=== PATIENT | female | born 1970 | race Caucasian/White ===

== ENCOUNTER 2016-11-02 08:04 | Day surgery (SDC) | payer OTHER ==
[2016-11-01 10:52] VITALS: BMI 29.7
[~2016-11-02 08:04] MED LIST: LACTATED RINGERS 1,000 ML IV ONE
[2016-11-02 08:42] VITALS: TEMP 97.7
[2016-11-02] MEDS ORDERED: LIDOCAINE 1% 20 ML VIAL (10MG/ML) FOR IV START INTRADERMA ONE (08:45)
[2016-11-02] MEDS ORDERED: fentaNYL (PF) 50 MCG/ML 2 ML AMP ONE (09:27)
[2016-11-02] MEDS ORDERED: MIDAZOLAM 2 MG/2 ML VIAL ONE (09:27)
[2016-11-02] MEDS ORDERED: TRIAMCINOLONE ACETONIDE 40 MG/ML 1 ML VIAL ONE (09:27)
[2016-11-02 10:11] VITALS: BP 141/90; RESP 16
--- NOTE | 2016-11-02 10:21 | FL ---
EXAMINATION TYPE: FL guided pain mgmt statistic DATE OF EXAM: 11/02/2016 10:05 AM HISTORY: Pain rt lumbar radio freq. dr melo aborted after several attempts to reposition needles. 24 sec fl time. 4 pics scanned
[2016-11-02 10:22] VITALS: PULSE 66
[2016-11-02] MEDS ORDERED: KETOROLAC 30 MG/ML 1 ML VIAL IVP ONE (10:26)
[2016-11-02] MEDS ORDERED: IV FLUID CONTINUATION 1,000 ML IV ONE (10:42)
--- NOTE | 2016-11-02 11:08 | P.PCN ---
Date of Procedure: 11/02/16 Anesthesia: MAC Surgeon: Arnold Butcher Pathology: none sent Condition: stable Disposition: PACU Description of Procedure: PREOPERATIVE DIAGNOSIS: Lumbar spondylosis without myelopathy, lumbar facet arthropathy. POSTOPERATIVE DIAGNOSIS: Lumbar spondylosis without myelopathy, lumbar facet arthropathy. PROCEDURES: Right Radiofrequency thermocoagulation, L3, L4, and L5 medial branch , with fluoroscopic guidance, aborted. ANESTHESIA: Local with 1% lidocaine; conscious sedation with Versed/fentanyl EBL: Minimal PROCEDURE INDICATION: The patient with low back pain secondary to lumbar arthropathy who had more than 50% relief of her pain with previous diagnostic lumbar medial branch block with bupivacaine. No use of blood thinners. PROCEDURE DESCRIPTION / TECHNIQUE: The patient was seen and identified in the preoperative holding area. Risks, benefits, complications, and alternatives were discussed with the patient, with risks including but not limited to bleeding, infection, nerve damage, weakness, incomplete pain relief, and allergic reactions to medications. The patient agreed to proceed with the procedure and signed the informed consent after all questions were answered. IV was started. Vital signs remained stable throughout the procedure. Patient was taken to the OR and time out was completed to verify proper patient , position, procedure, laterality of procedure, and allergies. The patient was placed in the prone position on the procedure table. A pillow was placed under the patients abdomen to reduce lordosis. The lumbosacral area was prepped and draped in the usual sterile fashion. Vital signs were closely monitored during the procedure. Conscious sedation was used during the procedure to decrease patients anxiety. Using AP and then oblique fluoroscopy, the eye of the Bakari dog corresponding to the connection between the superior and transverse articular processes of the right L4 vertebra, right L5 vertebra, and right top of the sacrum were identified and marked, and localized with 1% lidocaine. Subsequently, a 18 gauge, 100-mm radiofrequency cannula with a 10-mm active tip was advanced guided by fluoroscopy to each of the eyes of the Bakari dog at right L3, L4, and L5. Each site then underwent sensory testing at 50 Hz and 0 to 1 volt with concordant pain and motor testing at 2 Hz and 0 to 2.5 volts with local stimulation, but no radicular symptoms down the legs. Lateral view fluoroscopy demonstrated that the cannulas were posterior to the intervertebral foramina at all three levels. Upon beginning the initial radiofrequency thermocoagulation at each level, the patient began to feel severe pain in her right lower extremity, all above her right knee, primarily anteriorly but with some posterior discomfort. Lesioning was stopped within five seconds of beginning and the cannulas were re-adjusted posteriorly, motor testing from 0-2.5 volts was again performed and again demonstrated no radicular symptoms down the legs, and lateral fluoroscopy again demonstrated that these cannulas were all posterior to the intervertebral foramina and were thus anatomically unlikely to be close to a nerve root. Lesioning was again attempted, but the patient again complained of feeling weakness and pain in her right thigh, so lesioning was again stopped within five seconds of beginning. At this point, I asked the patient to move her right leg, and the patient noted that she felt her right thigh felt "weak and heavy", and felt differently than it had prior to the beginning of the procedure, so the procedure was immediately aborted and no further RF lesioning took place. Alba were all withdrawn intact, skin was cleansed, and bandages were applied. COMPLICATIONS: I examined the patient myself both immediately after the procedure and in the recovery room. Her strength in the bilateral lower extremities was unchanged from previous preoperative exam (4/5 strength in bilateral lower extremities), and the deficits appeared to essentially be due to pain and were equal on both sides, both before and after the procedure. DISPOSITION: The patient was placed in a supine position and transferred to the recovery area in a stable condition for observation and was discharged from the recovery room after meeting discharge criteria. Home discharge instructions given to the patient by the staff, and all questions were answered by both nursing staff and myself to patient's satisfaction. The patient will schedule a follow up in the clinic in approximately 4 weeks for further evaluation and to discuss her urine drug screen that was positive for cannabis at last visit. If patient continues to feel weakness in RLE at next visit, we will order MRI and nerve conduction studies.
== END 2016-11-02 10:45 | disposition home or self-care (01) ==
LOC: ORPAIN 08:04
PROVIDERS: ATTEND Anesthesiology
DX: G89.29 Other chronic pain (principal); M54.5 Low back pain; M47.816 Spondylosis without myelopathy or radiculopathy, lumbar region; M46.96 Unspecified inflammatory spondylopathy, lumbar region; F90.9 Attention-deficit hyperactivity disorder, unspecified type; Z79.891 Long term (current) use of opiate analgesic; Z79.899 Other long term (current) drug therapy; Z91.09 Other allergy status, other than to drugs and biological substances
CPT/HCPCS: 64635; 64636 ×2; J2250; J3301; J3010; J1885

== ENCOUNTER → 2016-11-30 | Outpatient (CLI) | payer OTHER ==
[2016-11-30 14:43] VITALS: BP 120/81; PULSE 78; RESP 18; TEMP 98.3
--- NOTE | 2016-11-30 21:40 | P.PN ---
Subjective This is follow-up visit for this patient with a history of severe and chronic low back pain secondary to lumbar degenerative disc disease lumbar spondylosis with facet arthropathy, and is currently on pain medications 1-methadone 10 mg every 8 hours 2-Harriman 10/325 every 6 hours when necessary Patient denies any side effects of the medication, denies excessive drowsiness or sleepiness, denies suicidal ideation, A few weeks ago, patient scheduled to have radiofrequency ablation of the medial branch lumbar area ,on the right side, and before the procedure we checked the urine drug screen was positive for marijuana, during the procedure, patient was very emotional and she was complaining of severe pain, and the procedure has to be stopped, then patient is here today to discuss the results of the urine drug screen again, and she will be given prescription refill for 1 month and then she can be discharged from the clinic, Physical Examinations : 1-Constitutiona : Cooperative , not in acute distress . 2-HEENT : nech ; supple , no Lymphadenopathy , no Thyromegaly , normal thyroid size . eyes : no ptosis , no icterus, no photophobia . ENT : normal of hearing , normal oropharynx , no Thrush . 3- Respiratory : Chest clear to auscultations Bilaterally , no wheezing , no Rhonchi . 4- Cardiovascular : regular rate and rhythem , S1 , S2 , no S3 , no S4. 5- Gastrointestinal : abdomen soft no tenderness , bowel sounds positive all four quadrents , no organomegally . 6- Genitourinary : Defferred . 7- neurologic : Cranial nerve II to XII intact , no focal neurological deffecit . 8-psychatric : alert , oriented X 3 , appropriate affect , intact judgment and insight . 9-Lymphatic : no Lymphadenopathy . 10- musculoskeltal : exams of the Lumber spine = motor strength lower extremities ,thigh and legs .5/5 on the right side , and its 3-4/ 5 on the left side deep tendon reflexes : normal Knee Jerk , normal ankle Jerk . lumber facet Loading Test positive strait leg raising test positive at 30 degree , RT ,LT , Fabere test positive RT and positive LT . Range of motion: Range of motion in flexion of the lumbar spine 30 degrees Range of motion range of motion of extension of the lumbar spine 10 Sever tenderness over the Sacroiliac joint on the Right , and Left side Assessment and plan = - Chronic low back pain secondary to lumbar degenerative disc disease , lumbar spondylosis with facet arthropathy without myelopathy , - chronic and current use of high-risk medication (Opioids). Patient had urine drug screen positive for marijuana, for this reason we will discharge patient from our clinic, and she will follow up with her Primary care ,and in the Future, if she wishe to proceed with the radiofrequency, we can schedule her to have radiofrequency ablation of the medial branch on the left side, but I explained to the patient that I cannot give her any narcotics, according to the policy of [facility] pain clinic, patient given prescription for methadone 10 mg every 8 hours, and patient was instructed that this will be the last prescription ,she will get from our clinic Objective - Vital Signs Vital signs: Vital Signs Temp 98.3 F 11/30/16 14:34 Pulse 78 11/30/16 14:34 Resp 18 11/30/16 14:34 BP 120/81 11/30/16 14:34 Pulse Ox Intake & Output 11/30/16 11/30/16 12/01/16 06:59 18:59 06:59 Weight 86.183 kg
== END | disposition home or self-care (01) ==
LOC: PNWHC3 13:54
PROVIDERS: ATTEND Specialist
DX: M51.36 Other intervertebral disc degeneration, lumbar region (principal); M47.816 Spondylosis without myelopathy or radiculopathy, lumbar region; M46.96 Unspecified inflammatory spondylopathy, lumbar region; Z79.891 Long term (current) use of opiate analgesic; F12.90 Cannabis use, unspecified, uncomplicated
CPT/HCPCS: 99211

== ENCOUNTER 2017-01-10 09:32 | Day surgery (SDC) | payer OTHER ==
[~2017-01-10 09:32] MED LIST changes: -LACTATED RINGERS 1,000 ML IV ONE; +LACTATED RINGERS 1,000 ML IV SCH
[2017-01-10] MEDS ORDERED: LIDOCAINE 1% 20 ML VIAL (10MG/ML) FOR IV START INTRADERMA ONE (09:41)
[2017-01-10 09:55] VITALS: RESP 16; TEMP 98.5
[2017-01-10] MEDS ORDERED: BUPIVACAINE (PF) 0.5% 30 ML VIAL ONE (10:31)
[2017-01-10] MEDS ORDERED: MIDAZOLAM 2 MG/2 ML VIAL ONE (10:31)
[2017-01-10] MEDS ORDERED: TRIAMCINOLONE ACETONIDE 40 MG/ML 1 ML VIAL ONE (10:31)
[2017-01-10] MEDS ORDERED: fentaNYL (PF) 50 MCG/ML 2 ML AMP ONE (10:31)
[2017-01-10] MEDS ORDERED: IV FLUID CONTINUATION 1,000 ML IV ONE (11:12)
--- NOTE | 2017-01-10 11:26 | FL ---
FLUOROSCOPY 13 seconds of fluoroscopy time were utilized during Pain Injection. 3 images document the procedure.
--- NOTE | 2017-01-10 11:28 | P.PCN ---
Date of Procedure: 01/10/17 Preoperative Diagnosis: Lumbar spondylosis without myelopathy Postoperative Diagnosis: Same as above Procedure(s) Performed: Left lumbar medial branch radiofrequency ablation under fluoroscopic guidance Anesthesia: MAC Surgeon: Alireza Ayoub Pathology: none sent Condition: stable Disposition: PACU Description of Procedure: The patient was seen in preoperative holding area consent was obtained then she was brought into the procedure room and placed in prone position. Skin was prepped with ChloraPrep and draped in a sterile manner. Lidocaine 1% was used to numb the skin over the target points that were chosen as follows: For the L5- S1 level which corresponds to the dorsal ramus of L5 the target point was at the superior medial aspect of the sacral ala on the left side of the spine on the AP view of fluoroscopy, and for the L2,L3 and L4 medial branches the target points were the connection between the transverse process and the superior articular process of L3, L4, and L5 vertebra. I used AP, oblique, and lateral views of fluoroscopy to verify needle tip position. I tried to place the active tips as parallel as possible to the medial branches tracks by going in a superio - medial direction. Motor stimulation showed only local twitches of these needles with no radiation to the left lower extremity, after that I prepared a solution of 3 mils Marcaine 0.5% +40 mg of Kenalog and 1 mL of the solution was given in each needle then radiofrequency ablation was started for 90 seconds at 80C and after the first session of ablation was done the needles were withdrawn by 1 or 2 mm and the bevels were turned 180 and another session ablation was started for 90 seconds at 80C. Patient tolerated procedure well. The patient tested positive for marijuana on her last office visit and the decision was made to give her only one prescription of methadone for 1 month until she finds another pain clinic however she has not been able to find any pain clinic that'll accept her so far and that's why I'm going to give her prescription for 45 pills of methadone to avoid any withdrawal symptoms since she has only 3 pills left of methadone as she stated. The patient then we will look for a different pain clinic .
[2017-01-10 11:33] VITALS: BP 123/75; PULSE 66
--- NOTE | 2017-01-13 10:11 | CDI ---
Dear Dr. Ayoub, The procedure note documents MAC sedation provided. On the Pain Procedure Record, however, nothing is checked under Anesthesia Plan and it shows that Versed/Fentanyl were given. MAC is with the Anesthesia Department monitoring. This is conflicting documentation that needs clarification. Please clarify is the sedation provided S Matthew was MAC (Monitored Anesthesia Care) or Moderate/Conscious sedation. PLEASE DOCUMENT THIS CLARIFICATION AN ADDENDUM TO THE PROCEDURE NOTE. If you have any questions regarding this query, you can contact Melissa Beckham Med Dir at Tuesday thru Tuesday 8am to 6pm Thank you for your time, Latanya Guzman, [facility] Outpatient [facility] MTDD
== END 2017-01-10 12:01 | disposition home or self-care (01) ==
LOC: ORPAIN 09:32
PROVIDERS: ATTEND Anesthesiology
DX: M47.816 Spondylosis without myelopathy or radiculopathy, lumbar region (principal)
CPT/HCPCS: 64635; 64636 ×3; J2250; J3301; J3010

== ENCOUNTER 2017-03-07 19:42 | Emergency (ER) | payer OTHER ==
[2017-03-07] MEDS ORDERED: HYDROcodone/APAP 10-325MG 1 EACH TAB PO ONE (20:04)
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
--- NOTE | 2017-03-07 20:54 | XR ---
EXAMINATION TYPE: XR lumbar spine 2 or 3V DATE OF EXAM: 03/07/2017 8:30 PM COMPARISON: NONE HISTORY: Pain TECHNIQUE: 3 views FINDINGS: Vertebra have normal alignment. There is mild narrowing at L4-5 disc. Posterior elements ar e intact. There is no compression fracture. Sacroiliac joints are intact. IMPRESSION: Degenerative disc change at L4-5. No fracture.
--- NOTE | 2017-03-07 20:55 | XR ---
EXAMINATION TYPE: XR chest 1V DATE OF EXAM: 03/07/2017 8:30 PM COMPARISON: 08/18/2010 HISTORY: Chest pain TECHNIQUE: Single frontal view of the chest is obtained. FINDINGS: Heart and mediastinum are normal. Lungs are clear. Diaphragm is normal. There is no sign o f pleural effusion. Bony thorax appears intact. IMPRESSION: No active cardiopulmonary disease. No change.
[2017-03-07 21:10] VITALS: BP 134/76; PULSE 87; RESP 18; TEMP 97.8
== END 2017-03-07 21:10 | disposition home or self-care (01) ==
LOC: EC 19:42
DX: M47.816 Spondylosis without myelopathy or radiculopathy, lumbar region (principal); R07.81 Pleurodynia; I10 Essential (primary) hypertension; F90.9 Attention-deficit hyperactivity disorder, unspecified type; F17.200 Nicotine dependence, unspecified, uncomplicated; Z79.899 Other long term (current) drug therapy; Z91.048 Other nonmedicinal substance allergy status; W10.9XXA Fall (on) (from) unspecified stairs and steps, initial encounter; Y93.89 Activity, other specified; Y92.009 Unspecified place in unspecified non-institutional (private) residence as the place of occurrence of the external cause
CPT/HCPCS: 71010; 72100; 99284

== ENCOUNTER → 2017-08-18 | Outpatient (CLI) | payer OTHER ==
[2017-08-18 12:57] VITALS: BP 114/56; PULSE 79; RESP 16
--- NOTE | 2017-08-18 13:44 | P.PN ---
Subjective Progress Note Date: 08/18/17 This is follow-up visit for this patient with a history of severe and chronic low back pain secondary to lumbar degenerative disc disease, lumbar facet arthropathy, we did interventional pain management injection,, the frequency ablation of the median branch lumbar area within the left side in October 2016 and we attempted to do the right side in December 2016 which was not successful because patient had muscle contraction during the procedure, the procedure was aborted patient currently on 1- MS IR 30 mg every 6 hours (her primary care ) Patient denies any side effects of the medication, denies excessive drowsiness or sleepiness, denies suicidal ideation, and reports that the current pain medication is NOT helping To control the pain and improve activity of daily living . Patient denies any motor or sensory deficit, denies change in bowel movement or urination, patient denies any fever or night sweats Objective - Vital Signs Vital signs: Vital Signs Temp Pulse 79 08/18/17 12:47 Resp 16 08/18/17 12:47 BP 114/56 08/18/17 12:47 Pulse Ox 100 08/18/17 12:47 Intake & Output 08/17/17 08/18/17 08/18/17 18:59 06:59 18:59 Weight 84.368 kg - Exam Physical Examinations : 1-Constitutiona : Cooperative , not in acute distress . 2-HEENT : nech ; supple , no Lymphadenopathy , normal thyroid size . eyes : no ptosis , no icterus, no photophobia . ENT : normal of hearing , normal oropharynx , no Thrush . 3- Respiratory : Chest clear to auscultations Bilaterally , no wheezing , no Rhonchi . 4- Cardiovascular : regular rate and rhythem , S1 , S2 , no S3 , no S4. 5- Gastrointestinal : abdomen soft no tenderness , bowel sounds positive all four quadrents , no organomegally . 6- Genitourinary : Defferred . 7- neurologic : Cranial nerve II to XII intact , no focal neurological deffecit . 8-psychatric : alert , oriented X 3 , appropriate affect , intact judgment and insight . 9-Lymphatic : no Lymphadenopathy . 10- musculoskeltal : , Lumber spine = normal moter stegnth lower extremities ,thigh and legs .5/5 deep tendon reflexes : normal Knee Jerk , normal ankle Jerk . positive lumber facet Loading Test strait leg raising test positive at 30 degree , RT ,LT , Fabere test positive RT and positive LT . Sever tenderness over the Sacroiliac joint on the Right , and Left side Assessment and Plan Plan: Assessment and plan= chronic low back pain secondary to lumbar degenerative disc disease , lumbar spondylosis with lumbar facet arthropathy , Interventional pain management= patient could benefit from repeat radiofrequency ablation of the medial branch lumbar area we will start with the left side first and he can do the right side ,
== END | disposition home or self-care (01) ==
LOC: PNWHC3 12:08
PROVIDERS: ATTEND Specialist
DX: M51.36 Other intervertebral disc degeneration, lumbar region (principal); M47.816 Spondylosis without myelopathy or radiculopathy, lumbar region; M46.96 Unspecified inflammatory spondylopathy, lumbar region; Z79.899 Other long term (current) drug therapy
CPT/HCPCS: 99211

== ENCOUNTER 2017-11-08 06:15 | Day surgery (SDC) | payer OTHER ==
[2017-11-01 16:07] VITALS: BMI 28.8
[2017-11-08 07:31] VITALS: TEMP 97.8
[2017-11-08] MEDS ORDERED: LIDOCAINE 1% 20 ML VIAL (10MG/ML) FOR IV START INTRADERMA ONE (07:45)
[2017-11-08] MEDS ORDERED: IV FLUID CONTINUATION 1,000 ML IV ONE (08:24)
[2017-11-08 08:28] VITALS: RESP 16
--- NOTE | 2017-11-08 08:29 | P.PCN ---
Date of Procedure: 11/08/17 Surgeon: Arnold Butcher Pathology: none sent Condition: stable Disposition: PACU Description of Procedure: PREOPERATIVE DIAGNOSIS: Lumbar spondylosis without myelopathy and facet arthropathy POSTOPERATIVE DIAGNOSIS: Lumbar spondylosis without myelopathy and facet arthropathy PROCEDURES: Right Radiofrequency thermocoagulation, L3-L4, L4-L5, and L5-S1 medial branch, with fluoroscopic guidance. ANESTHESIA: 1% lidocaine plain; Conscious sedation with versed/fentanyl EBL: Minimal PROCEDURE INDICATION: The patient with low back pain secondary to lumbar arthropathy who had more than 50% relief of pain with previous diagnostic lumbar medial branch block with bupivacaine and previous good relief with lumbar RFA. Patient presents for right lumbar RFA today after good relief from left side; no use of blood thinners. PROCEDURE DESCRIPTION / TECHNIQUE: The patient was seen and identified in the preoperative area. Risks, benefits, complications, and alternatives were discussed with the patient (including but not limited to incomplete pain relief , bleeding, infection, nerve damage, and allergies to medications), the patient agreed to proceed with the procedure and signed the consent after all questions were answered. Patient was taken to the OR and time out was completed to verify proper patient , position, laterality of pain, and allergies. Pt was placed in the prone position. IV was started. Vital signs remained stable throughout the procedure. A pillow was placed under the patients chest to decrease lordosis. The lumbosacral area was prepped and draped in the usual sterile fashion. Vital signs were closely monitored during the procedure. Conscious sedation was used during the procedure to decrease patients anxiety. Using AP and then oblique fluoroscopy, the eye of the Bakari dog corresponding to the connection between the superior and transverse articular processes of right L3, L4, L5 and top of the sacrum were identified, marked, and localized with 1% lidocaine. Subsequently, a 18 gauge, 100-mm radiofrequency cannula with a 10-mm active tip was advanced guided by fluoroscopy to each of the eyes of the Bakari dog at the levels of all four medial branches. Each site then underwent sensory testing at 50 Hz and 0 to 1 volt and motor testing at 2 Hz and 0 to 3 volt with local stimulation, but no radicular symptoms down the legs. Thereafter all four medial branch sites underwent radiofrequency thermocoagulation at 80 degrees Celsius for 90 seconds after injecting 0.5 ml of PF lidocaine 1%. After thermocoagulation, 1 ml of the block solution containing Kenalog 40 mg and 2 mL of preservative-free normal saline was injected at all four medial branch levels after negative aspiration of CSF and blood and with no paresthesias. Cannulas were retracted while injecting lidocaine 1% until the needles were removed. At the end of the procedure, the skin was cleansed and bandages were applied. COMPLICATIONS: No acute complications. DISPOSITION / PLANS: The patient was placed in a supine position and transferred to the recovery area in a stable condition for observation and was discharged from the recovery room after meeting discharge criteria. Home discharge instructions given to the patient by the staff. The patient was reexamined prior to discharge. The patient will schedule a follow up in clinic in 2-4 weeks.
--- NOTE | 2017-11-08 08:30 | FL ---
EXAMINATION TYPE: FL guided pain mgmt statistic DATE OF EXAM: 11/08/2017 HISTORY: Pain 7 sec fl time used during rt side rt lumbar
[2017-11-08 08:53] VITALS: BP 103/70; PULSE 58
== END 2017-11-08 09:07 | disposition home or self-care (01) ==
LOC: ORPAIN 06:15
PROVIDERS: ATTEND Anesthesiology
DX: G89.29 Other chronic pain (principal); M47.816 Spondylosis without myelopathy or radiculopathy, lumbar region; I10 Essential (primary) hypertension; F32.9 Major depressive disorder, single episode, unspecified; Z79.891 Long term (current) use of opiate analgesic; Z79.899 Other long term (current) drug therapy; Z91.09 Other allergy status, other than to drugs and biological substances
CPT/HCPCS: 64635; 64636 ×2; J2250; J3301; J2001; J3010; 99152

== ENCOUNTER → 2017-12-01 | Outpatient (CLI) | payer OTHER ==
[2017-12-01 13:28] VITALS: BP 120/86; PULSE 72; RESP 18
--- NOTE | 2017-12-01 15:09 | P.PN ---
Progress Note - Text Progress Note Date: 12/01/17 This is 47 years old female with a chronic history of severe low back pain she was diagnosed with lumbar spondylosis, with done radiofrequency ablation of the medial branch lumbar area, patient doing very well, and she reported ,that her pain improved significantly ,after, we did the radiofrequency, she is able to do activities of daily livings without being miserable, she is currently on MS IR 30 mg every 6 hours she is getting prescription from her primary care, she denies any side effects of the medication and she reports the current pain medication helping her to control her pain, patient will follow up with her primary care ,regarding management of her pain medication ,and she will follow up with the pain clinic when necessary
== END | disposition home or self-care (01) ==
LOC: PNWHC3 12:29
PROVIDERS: ATTEND Specialist
DX: G89.29 Other chronic pain (principal); M54.5 Low back pain; M47.816 Spondylosis without myelopathy or radiculopathy, lumbar region; Z79.891 Long term (current) use of opiate analgesic
CPT/HCPCS: 99211

== ENCOUNTER 2017-12-15 11:05 | Emergency (ER) | payer OTHER ==
[2017-12-15 11:09] VITALS: RESP 18
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
[2017-12-15] MEDS ORDERED: SODIUM CHLORIDE 0.9% 1,000 ML IV STA (11:23)
[2017-12-15 11:52] LABS: Basophils % (A) 0 %; Eosinophils # (A) 0.1 k/uL (0-0.7); Eosinophils % (A) 2 %; HCT 38.8 % (34.0-46.0); HGB 12.9 gm/dL (11.4-16.0); Lymphocytes # (A) 1.5 k/uL (1.0-4.8); Lymphocytes % (A) 21 %; MCH 30.2 pg (25.0-35.0); MCHC 33.2 g/dL (31.0-37.0); Mean Platelet Volume 7.5; Monocytes # (A) 0.4 k/uL (0-1.0); Monocytes % (A) 5 %; Neutrophils # (A) 4.9 k/uL (1.3-7.7); Neutrophils % (A) 70 %; Platelet Count 305 k/uL (150-450); RBC 4.26 m/uL (3.80-5.40); RDW 13.7 % (11.5-15.5)
[2017-12-15 11:58] LABS: Appearance,Urine Clear (Clear); Bilirubin,Urine Negative (Negative); Blood,Urine Large (Negative); Color,Urine Yellow; Glucose,Urine (UA) Negative (Negative); Ketones,Urine Negative (Negative); Leukocyte Esterase,Urine Negative (Negative); PH, Urine 7.5 (5.0-8.0); Protein,Urine Trace (Negative); RBC,Urine >182 /hpf (0-5); Specific Gravity,Urine 1.007 (1.001-1.035); Squamous Epithelial Cell,Urine 1 /hpf (0-4); Urobilinogen,Urine <2.0 mg/dL (<2.0)
[2017-12-15 12:04] LABS: ALT 27 U/L (9-52); AST 17 U/L (14-36); Albumin 3.8 g/dL (3.5-5.0); Alkaline Phosphatase 57 U/L (38-126); Anion Gap 5 mmol/L; Blood Urea Nitrogen 12 mg/dL (7-17); Calcium 9.2 mg/dL (8.4-10.2); Carbon Dioxide 27 mmol/L (22-30); Chloride 108 mmol/L (98-107); Glucose 87 mg/dL (74-99); Sodium 140 mmol/L (137-145); Total Bilirubin 0.4 mg/dL (0.2-1.3); Total Protein 6.3 g/dL (6.3-8.2)
[2017-12-15 12:19] LABS: HCG,Quantitative Serum <2.4 mIU/mL
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
[2017-12-15 13:15] VITALS: BP 135/78; PULSE 87; TEMP 98.7
== END 2017-12-15 13:15 | disposition home or self-care (01) ==
LOC: EC 11:05
DX: R93.8 Abnormal findings on diagnostic imaging of other specified body structures (principal); N93.9 Abnormal uterine and vaginal bleeding, unspecified; R10.2 Pelvic and perineal pain; I10 Essential (primary) hypertension; F90.9 Attention-deficit hyperactivity disorder, unspecified type; F17.200 Nicotine dependence, unspecified, uncomplicated; Z79.899 Other long term (current) drug therapy; Z91.048 Other nonmedicinal substance allergy status
CPT/HCPCS: 36415; 76830; 76856; 80053; 81001; 84702; 85025; 93975; 96360; 99284

== ENCOUNTER 2018-03-15 20:47 | Emergency (ER) | payer OTHER ==
[2018-03-15 21:06] VITALS: BP 185/110; PULSE 58; RESP 20; TEMP 98.1
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
--- NOTE | 2018-03-15 21:49 | XR ---
EXAMINATION TYPE: XR ankle complete LT DATE OF EXAM: 03/15/2018 COMPARISON: NONE HISTORY: Fall downstairs, pain TECHNIQUE: Three-view left ankle FINDINGS: Ankle mortise is intact. No acute fractures or dislocations are evident. Soft tissues are n ormal. Plantar calcaneal heel spur is present. Follow-up exam can be performed 7-10 days from acute trauma for continued pain. Some small ossifications are adjacent to the navicular most likely related to secondary ossification centers. There is pain at this level, consider 3 view foot for additional evaluation. IMPRESSION: 1. No acute fractures within the ankle. 2. Plantar calcaneal heel spur. 3. Suspected secondary ossification centers adjacent to the medial navicular. There is pain at this l ocation, consider plain film of the left foot.
--- NOTE | 2018-03-15 22:18 | XR ---
EXAMINATION TYPE: XR foot complete LT DATE OF EXAM: 03/15/2018 COMPARISON: NONE HISTORY: Ankle pain foot pain TECHNIQUE: 3 views FINDINGS: Metatarsals appear intact. I see no fracture nor dislocation. There is a plantar calcaneal spur. There is mild spurring at the talonavicular joint. IMPRESSION: Degenerative changes. No fracture.
== END 2018-03-15 22:35 | disposition home or self-care (01) ==
LOC: EC 20:47
DX: S93.402A Sprain of unspecified ligament of left ankle, initial encounter (principal); S96.912A Strain of unspecified muscle and tendon at ankle and foot level, left foot, initial encounter; I10 Essential (primary) hypertension; F90.9 Attention-deficit hyperactivity disorder, unspecified type; F17.200 Nicotine dependence, unspecified, uncomplicated; Z88.8 Allergy status to other drugs, medicaments and biological substances; Z79.899 Other long term (current) drug therapy; X50.1XXA Overexertion from prolonged static or awkward postures, initial encounter
CPT/HCPCS: 99283

== ENCOUNTER → 2018-08-01 | Day surgery (SDC) | payer OTHER ==
[2018-07-26 11:43] VITALS: BMI 28.5
[~2018-08-01] MED LIST changes: -LACTATED RINGERS 1,000 ML IV SCH; +SODIUM CHLORIDE 0.9% 1,000 ML IV ONE; +SODIUM CHLORIDE 0.9% 500 ML 500 ML IV SCH
[2018-08-01 09:04] VITALS: TEMP 98.1
--- NOTE | 2018-08-01 10:04 | P.PCN ---
Date of Procedure: 08/01/18 Procedure(s) Performed: PREOPERATIVE DIAGNOSIS: 1-Lumbar Spondylosis with Facet Arthropathy without myelopathy. POSTOPERATIVE DIAGNOSIS: 1- Lumbar Spondylosis with Facet Arthropathy without myelopathy. PROCEDURES : Left Radiofrequency thermocoagulation, L3-L4, L4-L5, and L5-S1 medial branch, with fluoroscopic guidance ANESTHESIA: Moderate sedation with intravenous versed 2 mg and fentaneyl 100 mcg, and local infiltration with Ropivacaine 0.5 % . EBL: Minimal PROCEDURE INDICATION: The patient with low back pain secondary to lumbar facet arthropathy who had more than 50% relief of her pain with previous diagnostic lumbar medial branch block with bupivacaine. PROCEDURE DESCRIPTION / TECHNIQUE: The patient was seen and identified in the preoperative area. Risks, benefits, complications, including but not limited to risk of infection ,bleeding , allergic reactions to the medications and no complete pain releife , and alternatives were discussed with the patient, the patient agreed to proceed with the procedure and signed the consent. IV was started. Vital signs remained stable throughout the procedure. Patient was taken to the OR and time out was completed. The patient was placed in the prone position on the procedure table. The lumber area was prepped and draped in the usual sterile fashion. . Vital signs were closely monitored during the procedure .IV sedation was used during the procedure to decrease patients anxiety. Using AP and then oblique fluoroscopy, the ``eye of the Bakari dog corresponding to the connection between the superior and transverse articular processes of Left L3, L4, and L5 were identified, marked, and localized with 1 % lidocaine. Subsequently, a 18 [id number] radiofrequency cannula with a 10- mm active tip was advanced guided by fluoroscopy to each of the ``eyes of the Bakari dog at Left L3, L4, and L5. Each site then underwent sensory testing at 50 Hz and 0 to 1 volt and motor testing at 2.5 Hz and 0 to 3 volt with local stimulation, but no radicular symptoms down the legs. Thereafter the Left L3-4, L4-5, and L5-S1 sites underwent radiofrequency thermocoagulation at 80 degrees celsius for 90 seconds after injecting 0.5 ml of PF Ropivacaine 1ml then After the thermocoagulation done , 1 ml of the block solution containing Kenalog 40 mg and 3 ml of Ropivacaine 0.5% was injected at the Left L3-4 , L4 -5 , and L5-S1, levels after negative aspiration of CSF and blood and with no paresthesias. Cannulas were retracted while injecting lidocaine 1% until the needle is out. At the end of the procedure, the skin was cleansed and bandages were applied. COMPLICATIONS: No acute complications. DISPOSITION / PLANS: The patient was placed in a supine position and transferred to the recovery area in a stable condition for observation and was discharged from the recovery room after meeting discharge criteria. Home discharge instructions given to the patient by the staff. The patient was reexamined prior to discharge. The patient will schedule a follow up in the clinic in 2-4 weeks.
--- NOTE | 2018-08-01 10:40 | FL ---
EXAMINATION TYPE: FL guided pain mgmt statistic DATE OF EXAM: 08/01/2018 COMPARISON: NONE HISTORY: Back pain TECHNIQUE: Fluoroscopy. FINDINGS/IMPRESSION: Fluoroscopic guidance was provided during procedure performed by Dr. Donald. A total of 24 seconds of fluoroscopic time was utilized during the procedure and 3 spot images was a cquired demonstrating multilevel localization of the lumbar spine.
[2018-08-01 10:51] VITALS: RESP 16
[2018-08-01 10:56] VITALS: BP 110/73; PULSE 55
== END ==
LOC: ORPAIN 08:32
PROVIDERS: ATTEND Specialist
DX: M47.816 Spondylosis without myelopathy or radiculopathy, lumbar region (principal); Z91.09 Other allergy status, other than to drugs and biological substances
CPT/HCPCS: 64635; 64636; J2250; J3010; 99152

== ENCOUNTER → 2018-09-12 | Day surgery (SDC) | payer OTHER ==
[2018-09-04 10:45] VITALS: BMI 28.5
[~2018-09-12] MED LIST changes: -SODIUM CHLORIDE 0.9% 1,000 ML IV ONE; +SODIUM CHLORIDE 0.9% 250 ML IV ONE; -SODIUM CHLORIDE 0.9% 500 ML 500 ML IV SCH
[2018-09-12 09:58] VITALS: RESP 18; TEMP 98.1
--- NOTE | 2018-09-12 10:53 | P.PCN ---
Date of Procedure: 09/12/18 Procedure(s) Performed: PREOPERATIVE DIAGNOSIS: 1-Lumbar Spondylosis with Facet Arthropathy without myelopathy. POSTOPERATIVE DIAGNOSIS: 1- Lumbar Spondylosis with Facet Arthropathy without myelopathy. PROCEDURES : Right Radiofrequency thermocoagulation, L3-L4, L4-L5, and L5-S1 medial branch, with fluoroscopic guidance ANESTHESIA: Moderate sedation with intravenous versed 2 mg and fentaneyl 100 mcg, and local infiltration with Ropivacaine 0.5 % . EBL: Minimal PROCEDURE INDICATION: The patient with low back pain secondary to lumbar facet arthropathy who had more than 50% relief of her pain with previous diagnostic lumbar medial branch block with bupivacaine. PROCEDURE DESCRIPTION / TECHNIQUE: The patient was seen and identified in the preoperative area. Risks, benefits, complications, including but not limited to risk of infection ,bleeding , allergic reactions to the medications and no complete pain releife , and alternatives were discussed with the patient, the patient agreed to proceed with the procedure and signed the consent. IV was started. Vital signs remained stable throughout the procedure. Patient was taken to the OR and time out was completed. The patient was placed in the prone position on the procedure table. The lumber area was prepped and draped in the usual sterile fashion. . Vital signs were closely monitored during the procedure .IV sedation was used during the procedure to decrease patients anxiety. Using AP and then oblique fluoroscopy, the ``eye of the Bakari dog corresponding to the connection between the superior and transverse articular processes of right L3, L4, and L5 were identified, marked, and localized with 1% lidocaine. Subsequently, a 18 [id number] radiofrequency cannula with a 10- mm active tip was advanced guided by fluoroscopy to each of the ``eyes of the Bakari dog ' at right L3, L4, and L5. Each site then underwent sensory testing at 50 Hz and 0 to 1 volt and motor testing at 2.5 Hz and 0 to 3 volt with local stimulation, but no radicular symptoms down the legs. Thereafter the right L3-4, L4-5, and L5-S1 sites underwent radiofrequency thermocoagulation at 80 degrees celsius for 90 seconds after injecting 0.5 ml of PF Ropivacaine 1ml then After the thermocoagulation done , 1 ml of the block solution containing Depo-medrol 40 mg and 3 ml of Ropivacaine 0.5% was injected at the right L3-4 , L4-5 , and L5-S1, levels after negative aspiration of CSF and blood and with no paresthesias. Cannulas were retracted while injecting lidocaine 1% until the needle is out. . At the end of the procedure, the skin was cleansed and bandages were applied. COMPLICATIONS: No acute complications. DISPOSITION / PLANS: The patient was placed in a supine position and transferred to the recovery area in a stable condition for observation and was discharged from the recovery room after meeting discharge criteria. Home discharge instructions given to the patient by the staff. The patient was reexamined prior to discharge. The patient will schedule a follow up in the clinic in 2-4 weeks.
--- NOTE | 2018-09-12 11:01 | FL ---
Fluoroscopy INDICATION: Pain FINDINGS: Fluoroscopy time: 31 seconds. Images obtained: 3. IMPRESSIONS: 1. Documentation of fluoroscopy.
[2018-09-12 11:18] VITALS: PULSE 56
[2018-09-12 12:14] VITALS: BP 144/84
== END | disposition home or self-care (01) ==
LOC: ORPAIN 09:17
PROVIDERS: ATTEND Specialist
DX: M47.816 Spondylosis without myelopathy or radiculopathy, lumbar region (principal); M46.96 Unspecified inflammatory spondylopathy, lumbar region; Z91.048 Other nonmedicinal substance allergy status
CPT/HCPCS: 64635; 64636 ×2; J2250; J1030; J3010; 99152

== ENCOUNTER → 2018-10-19 | Outpatient (CLI) | payer OTHER ==
[2018-10-19 14:00] VITALS: BP 132/92; PULSE 69; RESP 18
--- NOTE | 2018-10-19 14:22 | P.PN ---
Subjective Progress Note Date: 10/19/18 This is follow-up visit for this patient with a history of severe and chronic low back pain secondary to lumbar degenerative disc disease, lumbar facet arthropathy, we did interventional pain management injection,, the frequency ablation of the median branch lumbar area , done a few weeks ago, patient reported that her low back pain improved significantly after the radiofrequency , but she reported that she is having severe pain in the lower extremity mainly on the left side, the pain associated with numbness and tingling sensation , and she feels her lower extremity weaker than before , she continued to use pain medication MS IR 30 mg every 6 hours (she is getting prescription refill from her primary care ) Patient denies any side effects of the medication, denies excessive drowsiness or sleepiness, denies suicidal ideation, and reports that the current pain medication is NOT helping To control the pain and improve activity of daily living . Patient denies any motor or sensory deficit, denies change in bowel movement or urination, patient denies any fever or night sweats Physical Examinations : 1-Constitutiona : Cooperative , not in acute distress . 2-HEENT : nech ; supple , no Lymphadenopathy , normal thyroid size . eyes : no ptosis , no icterus, no photophobia . ENT : normal of hearing , normal oropharynx , no Thrush . 3- Respiratory : Chest clear to auscultations Bilaterally , no wheezing , no Rhonchi . 4- Cardiovascular : regular rate and rhythem , S1 , S2 , no S3 , no S4. 5- Gastrointestinal : abdomen soft no tenderness , bowel sounds positive all four quadrents , no organomegally . 6- Genitourinary : Defferred . 7- neurologic : Cranial nerve II to XII intact , no focal neurological deffecit . 8-psychatric : alert , oriented X 3 , appropriate affect , intact judgment and insight . 9-Lymphatic : no Lymphadenopathy . 10- musculoskeltal : , Lumber spine = normal moter stegnth lower extremities ,thigh and legs .5/5 deep tendon reflexes : normal Knee Jerk , normal ankle Jerk . positive lumber facet Loading Test strait leg raising test positive at 30 degree , RT ,LT , Fabere test positive RT and positive LT . tenderness over the Sacroiliac joint on the Right , and Left side Assessment and plan= chronic low back pain secondary to lumbar degenerative disc disease , lumbar spondylosis with lumbar facet arthropathy , status post radiofrequency ablation of medial branch lumbar area , patient currently complaining of severe pain and numbness in the lower extremity, I will order MRI of the lumbar spine to identify the etiology Patient will be given prescription for Valium 5 mg to be taken before the MRI , he shouldn't be a candidate to have lumbar epidural steroid injection Objective - Vital Signs Vital signs: Vital Signs Temp Pulse 69 10/19/18 13:46 Resp 18 10/19/18 13:46 BP 132/92 10/19/18 13:46 Pulse Ox 99 10/19/18 13:46 Intake & Output 10/18/18 10/19/18 10/19/18 18:59 06:59 18:59 Weight 83.007 kg
== END | disposition home or self-care (01) ==
LOC: PNWHC3 13:28
PROVIDERS: ATTEND Specialist
DX: G89.29 Other chronic pain (principal); M51.36 Other intervertebral disc degeneration, lumbar region; M47.816 Spondylosis without myelopathy or radiculopathy, lumbar region; M46.96 Unspecified inflammatory spondylopathy, lumbar region; M79.662 Pain in left lower leg; R20.0 Anesthesia of skin; Z98.890 Other specified postprocedural states
CPT/HCPCS: 99211

== ENCOUNTER → 2018-10-25 | Outpatient (CLI) | payer OTHER ==
--- NOTE | 2018-10-26 03:29 | MR ---
EXAMINATION TYPE: MR lumbar spine wo con DATE OF EXAM: 10/25/2018 COMPARISON: 11/13/2014 HISTORY: low back pain into legs, numbness TECHNIQUE: Multiplanar, multisequence images of the lumbar spine were acquired. The vertebra have normal alignment. There is narrowing of L4-5 disc space. There is no spinal stenosi s. Lumbar nerve roots appear normal. Neural foramina are fairly well-maintained. Disc space narrowing at L4-5 could be developmental. I see no focal bone destruction. There is no lumbar paraspinal mass. IMPRESSION: Hypoplastic L4-5 lumbar disc. No spinal stenosis. No lumbar disc herniation..
== END | disposition home or self-care (01) ==
LOC: RADMRIMAIN 21:52
PROVIDERS: ATTEND Specialist
DX: M51.86 Other intervertebral disc disorders, lumbar region (principal)
CPT/HCPCS: 72148

== ENCOUNTER → 2018-11-13 | Outpatient (CLI) | payer OTHER ==
[2018-11-13 12:41] VITALS: BP 112/80; PULSE 88; RESP 16; TEMP 97.8
--- NOTE | 2018-11-14 06:04 | P.PN ---
Subjective Progress Note Date: 11/13/18 This is follow-up visit for this patient with a history of severe and chronic low back pain secondary to lumbar degenerative disc disease, lumbar facet arthropathy, we did interventional pain management injection,, the frequency ablation of the median branch lumbar area , done a few weeks ago, patient reported that her low back pain improved significantly after the radiofrequency , but she reported that she is having severe pain in the lower extremity mainly on the left side, the pain associated with numbness and tingling sensation , and she feels her lower extremity weaker than before , she continued to use pain medication MS IR 30 mg every 6 hours (she is getting prescription refill from her primary care ) Patient denies any side effects of the medication, denies excessive drowsiness or sleepiness, denies suicidal ideation, and reports that the current pain medication is NOT helping To control the pain and improve activity of daily living . Patient denies any motor or sensory deficit, denies change in bowel movement or urination, patient denies any fever or night sweats Plan patient came for follow-up visit to discuss the results of the MRI report that was done recently, the MRI report showed that she had hypoplastic of L4-5 Disc , patient could benefit from Neurontin 100 mg 3 times a day, and she will follow up with the neurosurgeon for evaluation, regarding her MRI results. Objective - Vital Signs Vital signs: Vital Signs Temp 97.8 F 11/13/18 12:36 Pulse 88 11/13/18 12:36 Resp 16 11/13/18 12:36 BP 112/80 11/13/18 12:36 Pulse Ox 96 11/13/18 12:36 Intake & Output 11/13/18 11/13/18 11/14/18 06:59 18:59 06:59 Weight 82.554 kg
== END ==
LOC: PNWHC3 11:49
PROVIDERS: ATTEND Specialist
DX: G89.29 Other chronic pain (principal); M51.36 Other intervertebral disc degeneration, lumbar region; M46.96 Unspecified inflammatory spondylopathy, lumbar region; Z79.899 Other long term (current) drug therapy
CPT/HCPCS: 99211

== ENCOUNTER 2019-06-21 23:01 | Emergency (ER) | payer OTHER ==
[2019-06-21 23:11] VITALS: RESP 18
--- NOTE | 2019-06-22 00:19 | CT ---
INDICATION: Pain TECHNIQUE: CT acquisition is performed through the brain and cervical spine. Sagittal and coronal reformatted images are provided. No IV contrast is administered. DOSE INFORMATION: DLP 1431.4 mGy-cm. This CT exam was performed using one or more of the following dose reduction techniques: automated exposure control, adjustment of the mA and/or kV according to patient size, and/or use of iterative reconstruction technique. COMPARISON: None. FINDINGS: CT head: No intracranial hemorrhage, abnormal intra- or extra-axial collections or parenchymal lesions are seen. The shape and configuration of the cortical sulci, basal cisterns and ventricles are within normal limits. The urbina-white differentiation is preserved. No evidence of mass effect, midline shift, or edema. The calvarium is intact. The visualized sinuses and mastoid air cells are clear. CT cervical spine: Craniocervical and atlantoaxial relationships are maintained. Vertebral body height and alignment are preserved. There is no evidence of acute fracture or subluxation. There is mild degenerative disc disease at C6-C7. There is mild right greater than left facet arthropathy. Degenerative changes are present at the anterior C1-C2 articulation. There is no high-grade spinal canal stenosis. There is no prevertebral soft tissue swelling. Lung apices are clear. IMPRESSION: 1. CT head: No acute intracranial process. 2. CT cervical spine: No acute osseous findings.
--- NOTE | 2019-06-22 01:09 | XR ---
INDICATION: Pain COMPARISON: Lumbar spine radiographs 03/07/17 FINDINGS: Frontal, lateral, and spot L5-S1 views of the lumbar spine are provided. There is no evidence of acute fracture or subluxation. There is normal lumbar lordosis, vertebral body height, and alignment. There is multilevel facet arthropathy and moderate space narrowing at L4-L5, similar to prior exam. Sacroiliac joints are normally aligned. IMPRESSION: No acute fracture or subluxation.
--- NOTE | 2019-06-22 01:10 | XR ---
INDICATION: Pain COMPARISON: CXR 03/07/17 FINDINGS: PA and lateral views of the chest are obtained. Cardiac mediastinal fluid and pulmonary vascularity are normal. The lungs are clear. There is no pleural effusion or pneumothorax. Bony elements are within normal limits. IMPRESSION: No acute cardiopulmonary disease.
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
[2019-06-22 01:41] VITALS: BP 107/65; PULSE 67; TEMP 97.8
== END 2019-06-22 01:36 | disposition home or self-care (01) ==
LOC: EC 23:01
DX: S09.90XA Unspecified injury of head, initial encounter (principal); M54.2 Cervicalgia; G89.29 Other chronic pain; M54.5 Low back pain; I10 Essential (primary) hypertension; F17.200 Nicotine dependence, unspecified, uncomplicated; Z79.891 Long term (current) use of opiate analgesic; Z79.899 Other long term (current) drug therapy; Z91.048 Other nonmedicinal substance allergy status; Z86.69 Personal history of other diseases of the nervous system and sense organs; Z90.11 Acquired absence of right breast and nipple; V49.40XA Driver injured in collision with unspecified motor vehicles in traffic accident, initial encounter; Y93.89 Activity, other specified; Y92.89 Other specified places as the place of occurrence of the external cause
CPT/HCPCS: 70450; 71046; 72100; 72125; 99285

== ENCOUNTER → 2019-11-13 | Outpatient (CLI) | payer OTHER ==
[2019-11-13 12:55] VITALS: PULSE 96; RESP 16
[2019-11-13 13:36] VITALS: BP 144/104
--- NOTE | 2019-11-14 12:00 | P.PAINPG ---
Subjective Progress Note Date: 11/13/19 This is follow-up visit for this 49-year-old female patient with a history of severe and chronic low back pain secondary to lumbar degenerative disc disease, lumbar facet arthropathy, we performed interventional pain procedures- radiofrequency ablation of the lumbar area , done over a year ago, patient reported that her low back pain improved significantly after the radiofrequency , lasting for approximately 6 months. Her current pain is located in the low back, left worse than right, radiating to bilateral lower extremities, worse on the left side. This she does report leg numbness when sitting for more than 10 minutes. 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 She continues to use pain medication morphine extended release 60 mg twice a day and oxycodone 10/325 twice a day when necessary, she obtains this from Dr. Martinez. Of note, she has been evaluated by neurosurgeon, Dr. Byrd, who recommended a spinal cord stimulator per the patient, however she has been unable to obtain a referral for psychiatry for clearance for spinal cord stimulator, she is requesting a prescription for this today. Per the patient, she has been evaluated by several neurosurgeons, who informed her that she is not a candidate for surgery, she has a tendency to develop invasive keloids with surgical incision. Patient denies any side effects of the medication, denies excessive drowsiness or sleepiness, denies suicidal ideation, and reports that the current pain medication is helping to control the pain and improve activity of daily living. Patient denies any motor or sensory deficit, denies change in bowel movement or urination, patient denies any fever or night sweats Review of systems is negative for chest pain, shortness of breath, new onset weakness, numbness/tingling, abdominal pain, malaise, fever, night sweats, chills, homicidal or suicidal ideation, or bowel or bladder incontinence. She does endorse hot flashes. Physical exam: Vitals: Reviewed in EMR GENERAL: Well appearing, in no acute distress PSYCH: Mood and affect is appropriate. Awake, alert, and oriented SKIN: Skin color, texture, turgor normal, no rashes or lesions HEENT: Normocephalic, atraumatic. EOM intact CV: No pedal edema RESP: Respirations are unlabored, no audible wheezing GI: Abdomen non-distended MUSCULOSKELETAL: Bilateral lower extremity strength is normal and symmetric. No atrophy or tone abnormalities are noted. Lumbar spine: Straight leg raising in the sitting position is negative for radicular pain. Tenderness to palpation over the lumbar spine and paraspinous muscles, worse on the left side. Positive for pain with facet loading and back extension/rotation. Range of motion is limited due to pain Buttocks: No pain to palpation over the PSIS Extremities: Peripheral joint ROM is full and pain free without obvious instability or laxity in all four extremities. No edema or skin discolorations noted. Gait: Gait is slow NEUR: Bilateral lower extremity coordination and muscle stretch reflexes are physiologic and symmetric. Negative clonus bilaterally. No loss of sensation is noted. Assessment and plan= 1. chronic low back pain secondary to lumbar degenerative disc disease , lumbar spondylosis with lumbar facet arthropathy , status post radiofrequency ablation of medial branch lumbar area done over one year ago with 6 months of good benefit, patient would benefit from repeat procedure, we will schedule her to have radiofrequency ablation of the lumbar area- L3, L4, L5 medial branches for facets L4-5 and L5- S1, we will start with the left side 2. Chronic use of high-risk medications including opioids- patient is obtaining these from Dr. Martinez. Patient has been evaluated by neurosurgeon, Dr. Byrd and recommended to have a spinal cord stimulator. She is requesting a psychiatry referral today for clearance for SCS implantation. I provided her with this today. I also informed her to have a discussion with both Dr. Martinez and Dr. Byrd as to who would manage her spinal cord stimulator, if she is a candidate for implantation. I informed her that the purpose of the stimulator is to wean off narcotics completely, she is amenable to this plan. I counseled the patient for 3 minutes on the importance of smoking cessation as it relates to overall health and chronic pain. She is working on cutting down, she is currently smoking 5-7 cigarettes per day. Follow-up: For above-mentioned procedure Objective - Vital Signs Vital signs: Vital Signs Temp Pulse 96 11/13/19 12:47 Resp 16 11/13/19 12:47 BP Pulse Ox 99 11/13/19 12:47 Intake & Output 11/12/19 11/13/19 11/13/19 18:59 06:59 18:59 Weight 93.894 kg PQRS Measure Charge Sheet Measure #130: Documentation of Current Meds in Medical Chart: Patient's medications documented in chart Measure #226: Tobacco Use: Screen & Cessation Intervention: Pt screened for tobacco use AND intervention given Measure #111: Pneumonia Vaccination: Pneumococcal vaccine NOT administered or previously given Measure #47: Advance Care Plan: Advance care planning discussed & documented, pt chose/unable to give Measure #412: Opioid Treatment Agreement: No documentation of signed opioid treatment agreement Measure #317: Preventitive Care & Scrn High Bld Press & F/U: Pre-hypertensive or hypertensive BP documented, pt will f/u with PCP Measure #128: Body Mass Index (BMI) Screening & Follow-up: BMI documented ABOVE normal parameters - f/u documented Measure #131: Pain Assessment & Follow-up: Pain positive & plan documented, Follow-up scheduled Measure #431: Unhealthy Alcohol Use Preventative Care & Scrn: Patient not identified as an unhealthy alcohol user PQRS Narrative: Smoking Status Current every day smoker Narcotic Agreement Date Signed 02/18/16 Pain Intensity [Bilateral 7 Lower Back] Scale Used Numeric (1 - 10) Hx Alcohol Use (MH) Yes: RARE Home Medications: Ambulatory Orders Echinacea 500 mg PO DAILY 03/26/14 Lisinopril [Zestril] 2.5 mg PO Q48H 03/26/14 Multivitamins, Thera [Multivitamin] 1 tab PO DAILY 03/26/14 Biotin 5 mg PO DAILY 06/21/19 Morphine Sulfate ER [Ms Contin] 60 mg PO Q12H 06/21/19 oxyCODONE-APAP 10-325MG [Percocet 10-325 mg] 1 tab PO BID PRN 06/21/19 Controlled Substance Measures - Controlled Substance Measures Is patient prescribed a controlled substance at discharge?: No
== END | disposition home or self-care (01) ==
LOC: PNWHC3 12:34
PROVIDERS: ATTEND Anesthesiology
DX: G89.29 Other chronic pain (principal); M51.36 Other intervertebral disc degeneration, lumbar region; M47.816 Spondylosis without myelopathy or radiculopathy, lumbar region; M46.96 Unspecified inflammatory spondylopathy, lumbar region; F17.200 Nicotine dependence, unspecified, uncomplicated; Z98.890 Other specified postprocedural states; Z79.891 Long term (current) use of opiate analgesic; Z79.899 Other long term (current) drug therapy
CPT/HCPCS: 99211

== ENCOUNTER → 2019-11-14 | Outpatient (CLI) | payer OTHER ==
[2019-11-14 08:16] VITALS: BP 116/82; PULSE 78; RESP 18; TEMP 98
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
--- NOTE | 2019-11-14 10:39 | MM ---
Reason for exam: additional evaluation requested from prior study. Last mammogram was performed 4 years and 4 months ago. History: Family history of breast cancer in sister at age 35. Benign excisional biopsy of the right breast, 2005. Physical Findings: Dr. Cannon did breast exam. MG Diagnostic Mammo w CAD NAHOMI Bilateral CC and MLO view(s) were taken. Prior study comparison: July 17, 2015, right breast MG work up mamm w CAD RT. July 15, 2015, bilateral MG screening mammo w CAD. The breast tissue is heterogeneously dense. This may lower the sensitivity of mammography. Benign appearing calcifications in the right breast. No suspicious abnormality. No significant new findings when compared with previous films. These results were verbally communicated with the patient and result sheet given to the patient on 11/14/19. ASSESSMENT: Incomplete: need additional imaging evaluation, BI-RAD 0 RECOMMENDATION: Ultrasound of the right breast. (area of pain)
--- NOTE | 2019-11-14 10:41 | USB ---
Reason for exam: additional evaluation requested from abnormal screening. History: Family history of breast cancer in sister at age 35. Benign excisional biopsy of the right breast, 2005. US Breast Limited RT Technologist: Nely Lucas Right limited breast ultrasound including focal area of concern, retroareolar and axilla demonstrates ductal ectasia at 10 o'clock and a 0.3 x 0.3 x 0.3cm circular, solid, benign oil cyst at the posterior nipple. These results were verbally communicated with the patient and result sheet given to the patient on 11/14/19. ASSESSMENT: Benign, BI-RAD 2 RECOMMENDATION: Routine screening mammogram of both breasts. Manage patient on a clinical basis.
== END | disposition home or self-care (01) ==
LOC: WWCWWP 07:59
PROVIDERS: ATTEND Obstetrics & Gynecology
DX: N64.4 Mastodynia (principal)
CPT/HCPCS: 77066

== ENCOUNTER 2019-11-19 09:51 | Day surgery (SDC) | payer OTHER ==
[2019-11-15 15:39] VITALS: BMI 32.4
[~2019-11-19 09:51] MED LIST changes: +BUPIVACAINE (PF) 0.5% 30 ML VIAL ONE; +LACTATED RINGERS 1,000 ML IV SCH; +MIDAZOLAM 2 MG/2 ML VIAL ONE; -SODIUM CHLORIDE 0.9% 250 ML IV ONE; +fentaNYL (PF) 50 MCG/ML 2 ML AMP ONE; +methylPREDNISolone ACETATE 40 MG/ML 1 ML VIAL ONE
[2019-11-19 10:09] VITALS: RESP 16; TEMP 98
--- NOTE | 2019-11-19 11:11 | P.PCN ---
Date of Procedure: 11/19/19 Procedure(s) Performed: PREOPERATIVE DIAGNOSIS: 1-Lumbar Spondylosis with Facet Arthropathy without myelopathy. 2- Lumber degenerative disc disease POSTOPERATIVE DIAGNOSIS: 1- Lumbar Spondylosis with Facet Arthropathy without myelopathy. 2- Lumber degenerative disc disease PROCEDURES : Left L3 , L4 , and L5 medial branch, with fluoroscopic guidance (fluoroscopy images available in the radiology department) ANESTHESIA: Moderate sedation with intravenous versed 2 mg and fentaneyl 100 mcg, and local infiltration with Ropivacaine 0.5 % . EBL: Minimal PROCEDURE INDICATION: The patient with low back pain secondary to lumbar facet arthropathy who had more than 50% relief of her pain with previous diagnostic lumbar medial branch block with bupivacaine, she was scheduled to have radiofrequency of the medial branch lumbar area on the left side. PROCEDURE DESCRIPTION / TECHNIQUE: The patient was seen and identified in the preoperative area. Risks, benefits, complications, including but not limited to risk of infection ,bleeding , allergic reactions to the medications and no complete pain releife , and alternatives were discussed with the patient, the patient agreed to proceed with the procedure and signed the consent. IV was started. Vital signs remained stable throughout the procedure. Patient was taken to the OR and time out was completed. The patient was placed in the prone position on the procedure table. The lumber area was prepped and draped in the usual sterile fashion. . Vital signs were closely monitored during the procedure .IV sedation was used during the procedure to decrease patients anxiety. Using AP and then oblique fluoroscopy, the ``eye of the Bakari dog corresponding to the connection between the superior and transverse articular processes of left L3, L4, and L5 were identified, marked, and localized with 1% lidocaine. Subsequently, a 18 -wt radiofrequency cannula with a 10-mm active tip was advanced guided by fluoroscopy to each of the``eyes of the Bakari dog at Left L3, L4, and L5. Then after that and we tried to do the sensory and motor stimulation, there was malfunction and the machine and we could not do any testing, and that we get a signal from his machine saying the impedance is high, we did the multiple troubleshooting, technique to identify what was the problem, and we contacted the rep for the [employer] to identify the problem, we were not able to do any testing, then the procedure was converted from radiofrequency thermocoagulation to steroid injection,then , 1 ml of the block solution containing Depo-Medrol 40 mg and 3 ml of Ropivacaine 0.5% was injected at the Left L3 , L4 , and L5 , levels after negative aspiration of CSF and blood and with no paresthesia At the end of the procedure, the skin was cleansed and bandages were applied. COMPLICATIONS: No acute complications. DISPOSITION / PLANS: The patient was placed in a supine position and transferred to the recovery area in a stable condition for observation and was discharged from the recovery room after meeting discharge criteria. Home discharge instructions given to the patient by the staff. The patient was reexamined prior to discharge. The patient will schedule a follow up in the clinic in 2-4 weeks. note= patient was scheduled to have radiofrequency thermocoagulation of the left-sided medial branch at L3, L4, L5, and the procedure was converted to left side L3, L4, L5 steroid injection because there was malfunction of the radiofrequency machine. After multiple attempts to troubleshoot the machine, we will not able to do any stimulation, and the case converted to left side medial branch block at the levels mentioned above.
[2019-11-19] MEDS ORDERED: LACTATED RINGERS 1,000 ML IV ONE (11:12)
--- NOTE | 2019-11-19 11:17 | FL ---
EXAMINATION TYPE: FL guided pain mgmt statistic DATE OF EXAM: 11/19/2019 CLINICAL HISTORY: Low back pain. TECHNIQUE: Fluoroscopy. COMPARISON: None. FINDINGS: Fluoroscopic guidance was provided during pain relief procedure performed by Dr. Fink . A total of 10 seconds of fluoroscopic time was utilized during the procedure and 5 spot images are acquired. Images acquired shows needle localization of the lumbosacral spine at multiple levels. IMPRESSION: As Above.
[2019-11-19 12:12] VITALS: BP 107/60; PULSE 63
== END 2019-11-19 11:50 | disposition home or self-care (01) ==
LOC: ORPAIN 09:51
PROVIDERS: ATTEND Specialist
DX: M47.816 Spondylosis without myelopathy or radiculopathy, lumbar region (principal); M51.36 Other intervertebral disc degeneration, lumbar region; Z88.8 Allergy status to other drugs, medicaments and biological substances
CPT/HCPCS: 62323; 64493; 64494; J2250; J1030; J3010; 64495; 99152; 99153

== ENCOUNTER 2019-12-03 06:21 | Day surgery (SDC) | payer OTHER ==
[2019-11-30 12:42] VITALS: BMI 33.8
[~2019-12-03 06:21] MED LIST changes: +LIDOCAINE 1% INJ 10MG/ML (20 ML MDV) ONE; -methylPREDNISolone ACETATE 40 MG/ML 1 ML VIAL ONE
[2019-12-03] MEDS ORDERED: LIDOCAINE 1% 20 ML VIAL (10MG/ML) FOR IV START INTRADERMA ONE (06:44)
--- NOTE | 2019-12-03 06:45 | P.PCN ---
Date of Procedure: 12/03/19 Description of Procedure: PREOPERATIVE DIAGNOSIS: Lumbar Facet Arthropathy without myelopathy POSTOPERATIVE DIAGNOSIS: same PROCEDURES: LEFT Radiofrequency thermocoagulation of L3-4, L4-5, L5-S1 medial branches, with fluoroscopic guidance ANESTHESIA: IV sedation with versed and fentanyl and local infiltration with lidocaine 1% 10 ml Imaging: Fluoroscopy was used, images where saved to the medical record PROCEDURE INDICATION: The patient with low back pain secondary to lumbar facet arthropathy who had more than 50% relief of pain with previous diagnostic lumbar medial branch block with local anesthetic. PROCEDURE DESCRIPTION / TECHNIQUE: The patient was seen and identified in the preoperative area. Risks, benefits, complications, including but not limited to risk of infection ,bleeding , allergic reactions to the medications and no complete pain relief , and alternatives were discussed with the patient, the patient agreed to proceed with the procedure and signed the consent. IV was started. Vital signs remained stable throughout the procedure. Patient was taken to the OR and time out was completed. The patient was placed in the prone position on the procedure table. The lumber area was prepped and draped in the usual sterile fashion . Vital signs were closely monitored during the procedure. IV sedation was used during the procedure to decrease patient anxiety. Using AP and then oblique fluoroscopy, the eye of the Bakari dog corresponding to the connection between the superior and transverse articular processes of L4, L5, and sacral Ala were identified, marked, and localized with 1% lidocaine. Subsequently, a 20 [id number] radiofrequency cannula with a 10-mm active tip was advanced guided by fluoroscopy to the junction of the pedicle and transverse process of each identified level. Each site then underwent sensory testing at 50 Hz and 0 to 1 volt and motor testing at 2.5 Hz and 0 to 3 volt with local stimulation, no radicular symptoms sensed by the patient and no obvious motor stimulation noted. Thereafter the tested sites underwent radiofrequency thermocoagulation at 80 degrees celsius for 90 seconds after injecting 1 ml of PF lidocaine 1%. Then after the thermocoagulation was done, 1 ml of the block solution containing ropivaciane 0.5% was injected at the lesioned sites after negative aspiration of CSF and blood and with no paresthesias. Cannulas were retracted. At the end of the procedure, the skin was cleansed and bandages were applied. COMPLICATIONS: No acute complications. DISPOSITION / PLANS: The patient was placed in a supine position and transferred to the recovery area in a stable condition for observation and was discharged from the recovery room after meeting discharge criteria. Home discharge instructions given to the patient by the staff. The patient was reexamined prior to discharge. Patient will follow up as directed to repeat the right side in 1-2 weeks.
[2019-12-03 06:47] VITALS: TEMP 97.6
[2019-12-03] MEDS ORDERED: IV FLUID CONTINUATION 600 ML IV ONE (07:30)
--- NOTE | 2019-12-03 07:45 | FL ---
EXAMINATION TYPE: FL guided pain mgmt statistic DATE OF EXAM: 12/03/2019 FLUOROSCOPY Fluoroscopy time of 7 seconds was used during left lumbar pain management procedure. 4 image/s docum ent/s the procedure.
[2019-12-03 07:51] VITALS: BP 105/59; PULSE 57
== END 2019-12-03 08:01 | disposition home or self-care (01) ==
LOC: ORPAIN 06:21
PROVIDERS: ATTEND Hospitalist
DX: M47.816 Spondylosis without myelopathy or radiculopathy, lumbar region (principal); Z90.711 Acquired absence of uterus with remaining cervical stump
CPT/HCPCS: 99211; 64635; 64636 ×2; J2250; J2001; J3010; 99152

== ENCOUNTER → 2019-12-17 | Day surgery (SDC) | payer OTHER ==
[2019-12-13 14:56] VITALS: BMI 32.7
[~2019-12-17] MED LIST changes: -BUPIVACAINE (PF) 0.5% 30 ML VIAL ONE; -LIDOCAINE 1% INJ 10MG/ML (20 ML MDV) ONE; -MIDAZOLAM 2 MG/2 ML VIAL ONE; -fentaNYL (PF) 50 MCG/ML 2 ML AMP ONE
== END ==
LOC: ORPAIN 09:48
PROVIDERS: ATTEND Anesthesiology
DX: Z53.9 Procedure and treatment not carried out, unspecified reason (principal)

== ENCOUNTER 2020-01-01 06:27 | Day surgery (SDC) | payer OTHER ==
[2019-12-31 09:52] VITALS: BMI 32.7
[2020-01-01 06:52] VITALS: RESP 16; TEMP 97.8
[2020-01-01] MEDS ORDERED: LIDOCAINE 1% (10MG/ML) FOR IV START INTRADERMA ONE (06:53)
[2020-01-01] MEDS ORDERED: BUPIVACAINE (PF) 0.5% 30 ML VIAL ONE (07:32)
[2020-01-01] MEDS ORDERED: MIDAZOLAM 2 MG/2 ML VIAL ONE (07:32)
[2020-01-01] MEDS ORDERED: fentaNYL (PF) 50 MCG/ML 2 ML AMP ONE (07:32)
[2020-01-01] MEDS ORDERED: methylPREDNISolone ACETATE 40 MG/ML 1 ML VIAL ONE (07:32)
--- NOTE | 2020-01-01 08:07 | P.PCN ---
Date of Procedure: 01/01/20 Surgeon: Alireza Ayoub Pathology: none sent Condition: stable Disposition: PACU Description of Procedure: Lumbar MBB Radiofrequency PREOPERATIVE DIAGNOSIS: Lumbar spondylosis without myelopathy, morbid obesity POSTOPERATIVE DIAGNOSIS: Lumbar spondylosis without myelopathy,morbid obesity PROCEDURES : Right Radiofrequency thermocoagulation L3-L4, L4-L5, and L5-S1 medial branch, with fluoroscopic guidance ANESTHESIA: IV moderate conscious sedation with versed and fentanyl and local infiltration with lidocaine 1% 5 ml EBL: Minimal PROCEDURE INDICATION: The patient with low back pain secondary to lumbar facet arthropathy who had more than 50% relief of her pain with previous diagnostic lumbar medial branch block with bupivacaine. PROCEDURE DESCRIPTION / TECHNIQUE: The patient was seen and identified in the preoperative area. Risks, benefits, complications, including but not limited to risk of infection ,bleeding , allergic reactions to the medications and no co mplete pain relief , and alternatives were discussed with the patient, the patient agreed to proceed with the procedure and signed the consent. IV was started. Vital signs remained stable throughout the procedure. Patient was taken to the OR and time out was completed. The patient was placed in the prone position on the procedure table. The lumber area was prepped and draped in the usual sterile fashion. . Vital signs were closely monitored during the procedure .IV sedation was used during the procedure to decrease patients anxiety. The target points were identified as follows: For the L5-S1 level which corresponds to the dorsal ramus of L5 the target point was at the superior medial aspect of the sacral ala on the right side of the spine on the AP view of fluoroscopy and for the L2, L3, and L4 medial branches the target points were at the connection between the transverse process and the superior articular process of L3, L4, and L5 vertebra respectively on the right oblique view of fluoroscopy. skin was marked, and localized with 1% lidocaineat these points. Subsequently, an 18 -it radiofrequency needles with a 10-mm curved active tips were advanced guided by fluoroscopy to each of the target points mentioned above in a superior medial direction to get the active tips as parallel as possible to the medial branches tracks. AP, oblique, and lateral views of fluoroscopy were used to verify needle tips position. Each level then underwent motor testing at 2.5 Hz and 0 to 3 volt with local stimulation, but no radicular symptoms down the legs. Thereafter radiofrequency thermocoagulation at 80 degrees celsius for 90 seconds after injecting 1 ml of PF Marcaine 0.5%(3 mls) with 40 mg of Kenalog. At the end of the procedure, the skin was cleansed and bandages were applied. COMPLICATIONS: No acute complications. DISPOSITION / PLANS: The patient was placed in a supine position and transferred to the recovery area in a stable condition for observation and was discharged from the recovery room after meeting discharge criteria. Home discharge instructions given to the patient by the staff. The patient was reexamined prior to discharge. The patient will schedule a follow up in the clinic in 2-4 weeks.
[2020-01-01] MEDS ORDERED: IV FLUID CONTINUATION 900 ML IV ONE (08:12)
[2020-01-01 08:32] VITALS: BP 139/90; PULSE 68
--- NOTE | 2020-01-01 08:33 | FL ---
EXAMINATION TYPE: FL guided pain mgmt statistic DATE OF EXAM: 01/01/2020 CLINICAL HISTORY: Low back pain. TECHNIQUE: Fluoroscopy. COMPARISON: None. FINDINGS: Fluoroscopic guidance was provided during pain relief procedure performed by Dr. Ayoub . A total of 10 seconds of fluoroscopic time was utilized during the procedure and four spot images a re acquired. Images acquired shows needle localization at multiple levels in the lumbar spine. IMPRESSION: As Above.
== END 2020-01-01 08:47 | disposition home or self-care (01) ==
LOC: ORPAIN 06:27
PROVIDERS: ATTEND Anesthesiology
DX: M47.816 Spondylosis without myelopathy or radiculopathy, lumbar region (principal); I10 Essential (primary) hypertension; E66.01 Morbid (severe) obesity due to excess calories; Z88.8 Allergy status to other drugs, medicaments and biological substances; Z68.33 Body mass index [BMI] 33.0-33.9, adult
CPT/HCPCS: 64635; 64636 ×2; J2250; J1030; J3010; 99152; 99153

== ENCOUNTER → 2020-04-17 | Outpatient (CLI) | payer OTHER ==
[2020-04-17 11:04] LABS: Basophils # (A) 0.1 k/uL (0-0.2); Basophils % (A) 1 %; Eosinophils # (A) 0.1 k/uL (0-0.7); Eosinophils % (A) 2 %; HCT 45.3 % (34.0-46.0); HGB 14.5 gm/dL (11.4-16.0); Lymphocytes # (A) 1.3 k/uL (1.0-4.8); Lymphocytes % (A) 19 %; MCH 30.6 pg (25.0-35.0); MCV 95.6 fL (80.0-100.0); Mean Platelet Volume 7.4; Monocytes # (A) 0.3 k/uL (0-1.0); Monocytes % (A) 4 %; Neutrophils # (A) 5.2 k/uL (1.3-7.7); Neutrophils % (A) 73 %; Platelet Count 298 k/uL (150-450); RBC 4.74 m/uL (3.80-5.40); RDW 12.5 % (11.5-15.5)
[2020-04-17 17:13] LABS: African American GFR (CKD) 98.2 (60.0-200.0); Albumin 4.6 g/dL (3.80-4.90); Anion Gap 9.9 mmol/L (4.00-12.00); BUN/Creat Ratio 17.5 Ratio (12.00-20.00); Calcium 9.5 mg/dL (8.7-10.3); Carbon Dioxide 24.1 mmol/L (21.6-31.8); Globulin 2.3 g/dL (1.6-3.3); Non-African American GFR(CKD) 84.8 (60.0-200.0); Potassium 4.4 mmol/L (3.5-5.5); Total Bilirubin 0.4 mg/dL (0.3-1.2); Total Protein 6.9 g/dL (6.2-8.2)
[2020-04-17 17:20] LABS: T4, Free (Free Thyroxine) 0.9 ng/dL (0.80-1.80)
[2020-04-17 19:21] LABS: Hemoglobin A1C 5.2 % (4.0-6.0)
== END | disposition home or self-care (01) ==
LOC: LABWHC1 09:32
PROVIDERS: ATTEND Internal Medicine
DX: I10 Essential (primary) hypertension (principal); R63.5 Abnormal weight gain; R59.1 Generalized enlarged lymph nodes
CPT/HCPCS: 36415; 80053; 83036; 84439; 84443; 84481; 85025

== ENCOUNTER → 2021-04-30 | Outpatient (CLI) | payer OTHER ==
[2021-05-01 16:37] LABS: ALT 25 U/L (8-44); AST 28 U/L (13-35); Albumin/Globulin Ratio 1.96 (1.60-3.17); Alkaline Phosphatase 120 U/L (41-126); Bilirubin, Conjugated <0.20 mg/dL (0.20-0.40); Globulin 2.4 g/dL (1.6-3.3); Total Bilirubin 0.3 mg/dL (0.3-1.2); Total Protein 7.1 g/dL (6.2-8.2)
== END | disposition home or self-care (01) ==
LOC: LABWHC1 15:11
PROVIDERS: ATTEND Anesthesiology Pain Medicine
DX: Z79.891 Long term (current) use of opiate analgesic (principal)
CPT/HCPCS: 36415; 80076

== ENCOUNTER → 2023-11-18 | Outpatient (CLI) | payer SELFPAY ==
[2023-11-18 15:58] LABS: Basophils # (A) 0.09 X 10*3/uL (0.00-0.10); Eosinophils # (A) 0.28 X 10*3/uL (0.04-0.35); HCT 42.8 % (37.2-46.3); Lymphocytes # (A) 3.02 X 10*3/uL (0.90-5.00); Lymphocytes % (A) 32.7 %; MCH 30.1 pg (27.0-32.0); MCHC 32.7 g/dL (32.0-37.0); Monocytes # (A) 0.54 X 10*3/uL (0.20-1.00); Monocytes % (A) 5.8 %; NRBC Per 100 WBC 0 X 10*3/uL (0.00-0.01); Neutrophils # (A) 5.29 X 10*3/uL (1.80-7.70); Neutrophils % (A) 57.3 %; Platelet Count 381 X 10*3/uL (140-440); RBC 4.65 X 10*6/uL (4.10-5.20); RDW 14.3 % (11.5-14.5); WBC 9.24 X 10*3/uL (4.50-10.00)
[2023-11-18 16:18] LABS: Erythrocyte Sedimentation Rate 23 mm/Hr (0-30)
[2023-11-18 16:33] LABS: Albumin 4.2 g/dL (3.8-4.9); Protein, Total 6.8 g/dL (6.2-8.2)
[2023-11-18 17:07] LABS: Blood Urea Nitrogen 13.6 mg/dL (9.0-27.0); C Reactive Protein 0.9 mg/dL (0.00-0.80)
== END | disposition home or self-care (01) ==
LOC: LABWHC1 09:24
PROVIDERS: ATTEND Physician Assistant
DX: G62.9 Polyneuropathy, unspecified (principal); M54.50 Low back pain, unspecified
CPT/HCPCS: 36415; 82607; 83036; 84165; 84520; 85025; 85652; 86038; 86140; 86255; 86334; 86780

== ENCOUNTER 2024-06-22 11:11 | Emergency (ER) | payer OTHER ==
[2024-06-22 12:22] LABS: Basophils # (A) 0.1 k/uL (0-0.2); Basophils % (A) 1 %; Eosinophils # (A) 0.3 k/uL (0-0.7); Eosinophils % (A) 4 %; HCT 42.9 % (34.0-46.0); HGB 14.2 gm/dL (11.4-16.0); Lymphocytes # (A) 2.1 k/uL (1.0-4.8); Lymphocytes % (A) 25 %; MCH 30.8 pg (25.0-35.0); MCV 93.2 fL (80.0-100.0); Mean Platelet Volume 7.4; Monocytes # (A) 0.3 k/uL (0-1.0); Monocytes % (A) 4 %; Neutrophils # (A) 5.3 k/uL (1.3-7.7); Neutrophils % (A) 65 %; Platelet Count 356 k/uL (150-450); RBC 4.61 m/uL (3.80-5.40); RDW 13.7 % (11.5-15.5); WBC 8.3 k/uL (3.8-10.6)
--- NOTE | 2024-06-22 12:26 | XR ---
EXAMINATION TYPE: XR chest 2V DATE OF EXAM: 06/22/2024 COMPARISON: 06/22/2019 HISTORY: 54 are old female shortness of breath, difficulty breathing TECHNIQUE: AP and lateral views FINDINGS: The patient is slightly rotated towards the left altering the normal mediastinal contours. Heart size is accentuated, likely upper limits of normal. Hazy densities related to portable technique and body habitus. No alma consolidation or pleural effusion. IMPRESSION: Borderline heart size. Slightly rotated exam. No definite acute process.
[2024-06-22 12:29] LABS: ALT 64 U/L (4-34); AST 49 U/L (14-36); African American GFR (CKD) >90 (>60 ml/min/1.73 sqM); Albumin 4.5 g/dL (3.5-5.0); Alkaline Phosphatase 133 U/L (38-126); Anion Gap 5 mmol/L; Blood Urea Nitrogen 17 mg/dL (7-17); Calcium 9.5 mg/dL (8.4-10.2); Carbon Dioxide 30 mmol/L (22-30); Chloride 105 mmol/L (98-107); Glucose 95 mg/dL (74-99); Magnesium 2.1 mg/dL (1.6-2.3); Non-African American GFR(CKD) >90 (>60 ml/min/1.73 sqM); Potassium 3.9 mmol/L (3.5-5.1); Sodium 140 mmol/L (137-145); Total Bilirubin 0.5 mg/dL (0.2-1.3); Total Protein 7.4 g/dL (6.3-8.2)
[2024-06-22 12:33] LABS: INR 0.9 (<1.2); Partial Thromboplastin Time 28.8 sec (22.0-30.0); Prothrombin Time 9.8 sec (10.0-12.5)
[2024-06-22] MEDS: KETOROLAC 15 MG/ML 1 ML VIAL IVP STA (13:18)
[2024-06-22] MEDS: IPRATROPIUM-ALBUTEROL 3 ML NEB INHALATION STA (13:20)
[2024-06-22 13:21] VITALS: TEMP 97.6
[2024-06-22 13:28] VITALS: RESP 18
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
[2024-06-22] MEDS: methylPREDNISolone SOD SUCCI 125 MG/2 ML VIAL IV ONE (15:26)
[2024-06-22 16:16] VITALS: BP 144/70; PULSE 76
== END 2024-06-22 16:00 | disposition home or self-care (01) ==
LOC: EC 11:11
CPT/HCPCS: 36415; 71046; 80053; 83735; 83880; 84484; 85025; 85610; 85730; 87636; 93005; 94640; 96374; 96375; 99285